=== PATIENT | male | born 1985 | race Caucasian/White ===

== ENCOUNTER 2018-05-26 14:35 | Emergency (ER) | payer BC, SELFPAY ==
[~2018-05-26 14:35] MED LIST: Sodium Chloride Irrig Solution 250 ML BOT ONE
[2018-05-26] MEDS ORDERED: Triple Antibiotic Oint 1 GM Packet ONE (14:53)
[2018-05-26] MEDS ORDERED: Adacel (T-DAP) 0.5 ML SYRINGE ONE (14:53)
[2018-05-26] MEDS ORDERED: Lidocaine 1% w/Epinephrine 1:100K 30 ML VIAL ONE (14:53)
--- NOTE | 2018-05-26 16:14 | RAD ---
LEFT KNEE 4 VIEWS: HISTORY: Cut to left knee by chainsaw. FINDINGS: AP, lateral, and both oblique views left knee obtained. Images demonstrate soft tissue injury anterior to the patella. The patella appears to be intact. No other obvious bony lesions seen. IMPRESSION: Anterior left knee soft tissue injury. No definite osseous lesion is seen. POS: [facility]SE RAMON
== END 2018-05-26 16:48 | disposition home or self-care (01) ==
LOC: MADERS 14:35
DX: S81.012A Laceration without foreign body, left knee, initial encounter (principal); I10 Essential (primary) hypertension; F17.210 Nicotine dependence, cigarettes, uncomplicated; Z79.899 Other long term (current) drug therapy; W26.8XXA Contact with other sharp object(s), not elsewhere classified, initial encounter
CPT/HCPCS: 12032; 90471; 90715; J2001

== ENCOUNTER 2018-05-29 12:44 | Emergency (ER) | payer SELFPAY ==
[2018-05-29] MEDS ORDERED: Clindamycin/D5W 600 mg/50 ml Premix Bag ONE (13:55)
== END 2018-05-29 15:04 | disposition home or self-care (01) ==
LOC: MADERS 12:44
DX: T81.41XA Infection following a procedure, superficial incisional surgical site, initial encounter (principal); L08.89 Other specified local infections of the skin and subcutaneous tissue; I10 Essential (primary) hypertension; Z87.891 Personal history of nicotine dependence; Z79.899 Other long term (current) drug therapy
CPT/HCPCS: 96365; J3490

== ENCOUNTER 2018-06-04 08:16 | Emergency (ER) | payer SELFPAY ==
[2018-06-04] MEDS ORDERED: Sodium Chloride 0.9% 100 ML ONE (08:58)
[2018-06-04] MEDS ORDERED: cefTRIAXone\\ROCEPHIN 1 GM VIAL ONE (08:58)
[2018-06-04] MEDS ORDERED: Sodium Chloride 0.9% 1,000 ML ONE ×2 (08:58→10:24)
[2018-06-04 09:17] LABS: #Basophils 0.1 thou/uL (0.0-0.2); #Eosinphils 0.2 thou/uL (0.0-0.7); #Lymphocytes 2.4 thou/uL (1.20-3.40); #Monocytes 0.6 thou/uL (0.11-0.59); #Neutrophils 5.7 thou/uL (1.40-6.50); %Basophils 0.8 % (0.0-1.0); %Eosinophils 2.6 % (0.0-10.0); %Lymphocytes 26.6 % (21.0-51.0); %Monocytes 6.7 % (0.0-10.0); %Neutrophils 63.2 % (42.0-75.0); Hemoglobin 15.9 g/dL (14.0-18.0); Mean Corpuscular HGB CONC 31.9 g/dL (32.0-36.0); Mean Corpuscular Hemoglobin 27.3 pg (27.0-31.0); Mean Corpuscular Volume 85.6 fL (78.0-98.0); Mean Platelet Volume 6.8 fL (7.4-10.4); Platelet Count 308 thou/uL (130-400); RBC Distribution Width 11.3 % (11.5-14.5); Red Blood Cell (RBC) Count 5.81 mill/uL (4.70-6.10)
--- NOTE | 2018-06-04 09:24 | RAD ---
LEFT KNEE FOUR VIEWS: HISTORY: Swelling. Pain. COMPARISON: 05/26/2018 FINDINGS: Small joint effusion. No acute displaced fracture or malalignment. There is extensive subcutaneous soft tissue swelling around the knee. IMPRESSION: Soft tissue swelling, which can be seen with cellulitis or evidence of recent injury/contusion. Prep atellar and infrapatellar superficial soft tissue swelling may be sequelae of bursitis. POS: [facility]
[2018-06-04 09:34] LABS: ALT (SGPT) 45 U/L (8-55); AST (SGOT) 18 U/L (5-34); Albumin 4.2 g/dL (3.5-5.0); Alkaline Phosphatase 144 U/L (40-150); Anion Gap 17 mmol/L (10-20); BUN (Urea Nitrogen) 23 mg/dL (8.9-20.6); Bilirubin, Total 0.4 mg/dL (0.2-1.2); Calc. Creatinine Clearance 0 mL/min (70-130); Calcium 9.6 mg/dL (7.8-10.44); Carbon Dioxide 21 mmol/L (22-29); Chloride 101 mmol/L (98-107); Estimated GFR-MDRD Greater than 90; Globulin 3.2 g/dL (2.4-3.5); Glucose 379 mg/dL (70-105); Potassium 4.5 mmol/L (3.5-5.1); Protein, Total 7.4 g/dL (6.0-8.3); Sodium 134 mmol/L (136-145)
[2018-06-04] MEDS ORDERED: Insulin Regular 300 UNITS/3 ML VIAL ONE (10:08)
[2018-06-04] MEDS ORDERED: Sodium Chloride 0.9% 250 ML 250 ML ONE (10:09)
== END 2018-06-04 10:48 | disposition home or self-care (01) ==
LOC: MADERS 08:16
DX: T81.40XA Infection following a procedure, unspecified, initial encounter (principal); E11.65 Type 2 diabetes mellitus with hyperglycemia; I10 Essential (primary) hypertension; Z87.891 Personal history of nicotine dependence; Z79.899 Other long term (current) drug therapy
CPT/HCPCS: 80053; 83605; 85025; 87040; 96361; 96365; 96367; 96375; J0696; J1815; J3370; J7050